=== PATIENT | female | born 1965 | race Caucasian/White ===

== ENCOUNTER → 2017-07-04 | Outpatient (CLI) | payer BC, OTHER ==
[~2017-07-04] MED LIST: ATV/1 SL; CYAN3INJ IM; LEVO137T3 PO; METR1TAB4 PO; OMEP20TA PO; TRAM-10 PO; TRAM100T PO; neomycin PO
--- NOTE | 2017-07-04 13:50 | DIAGNOSTIC IMAGING REPORT ---
CERVICAL WITHOUT CONTRAST CLINICAL HISTORY: 52 years-old Female presenting with NECK PAIN. TECHNIQUE: Multisequence, multiplanar MR imaging of the cervical spine was performed without the use of intravenous contrast. IV contrast: None. COMPARISON: None. FINDINGS: Localizer images: Unremarkable. Normal cervical lordosis. Osseous fusion across C5-C7. No residual hardware. Vertebral bodies otherwise maintain normal height, alignment, and bone marrow signal intensity. Intervertebral discs preserved. Adjacent level degenerative changes at C4-5 with disc osteophyte complex and ligamentum flavum thickening resulting in ventral and dorsal effacement of the thecal sac and mild contouring of the left posterior lateral aspect of the cord. No convincing evidence of impingement at this level. Uncovertebral hypertrophy at C4-5 also results in mild bilateral neural foraminal narrowing. The spinal cord maintains normal morphology and signal intensity. Craniocervical junction normal. No paraspinal soft tissue edema. No prevertebral soft tissue swelling. IMPRESSION: Osseous fusion across C5-7 with adjacent level degenerative change at C4-5. This results in moderate circumferential spinal canal narrowing and mild bilateral neural foraminal narrowing. No convincing evidence of spinal cord impingement. Electronically signed by: Felipe Landeros M.D. 07/04/2017 1:48 PM Dictated Date/Time: 07/04/2017 1:39 PM
== END | disposition home or self-care (01) ==
LOC: C.MRIBC 12:50
PROVIDERS: ATTEND Physician Assistant
DX: M54.2 Cervicalgia (principal)

== ENCOUNTER → 2018-02-05 | Outpatient (CLI) | payer BC, OTHER ==
[~2018-02-05] MED LIST changes: +LEVO125T5 PO; -LEVO137T3 PO; +MAGN400T6 PO; -METR1TAB4 PO; +NALO1TAB2 PO; -neomycin PO
--- NOTE | 2018-02-05 11:55 | DIAGNOSTIC IMAGING REPORT ---
THORACOLUMBAR SPINE 2 VIEWS CLINICAL HISTORY: PUMP CATHETER tube position COMPARISON STUDY: 10/11/2014 FINDINGS: Infusion catheter enters the posterior margin of the spinal canal at T12-L1. At this site the catheter is somewhat serpiginous but appears intact. There is no evidence for breakage of the line. The catheter extends to the superior fashion to the mid aspect of T10. IMPRESSION: Infusion catheter entering the spinal canal at T12-L1 and extending superiorly to the level of T10. The catheter appears intact. The above report was generated using voice recognition software. It may contain grammatical, syntax or spelling errors. Electronically signed by: Jack Nicholson M.D. 02/05/2018 11:53 AM Dictated Date/Time: 02/05/2018 11:51 AM
== END | disposition home or self-care (01) ==
LOC: C.RADBC 11:26
PROVIDERS: ATTEND Physician Assistant
DX: Z97.8 Presence of other specified devices (principal)

== ENCOUNTER → 2018-03-05 | Outpatient (CLI) | payer BC, OTHER ==
[~2018-03-05] MED LIST changes: +GADAVIST IV PRN
--- NOTE | 2018-03-06 07:20 | DIAGNOSTIC IMAGING REPORT ---
THORACIC SPINE COMBO CLINICAL HISTORY: RSD, HX IT PUMP IMPLANTATION, EVAL CATH TIP, evaluate for catheter tip granuloma. COMPARISON STUDY: MRI of the thoracic spine December 07, 2014 and thoracolumbar spine radiographs February 05, 2018. TECHNIQUE: Utilizing a 1.5 Claudine magnet, multiplanar, multi echo imaging of the thoracic spine was performed pre and postcontrast administration. Injection of 6.2 cc of Gadavist IV was uneventful. FINDINGS: Alignment of the thoracic spine is anatomic. Postoperative findings within the lower cervical spine are incidentally noted. Thoracic cord signal and caliber are normal. Intracanalicular catheter within the lower thoracic canal is noted. No catheter tip granuloma is present. Position of the catheter tip is difficult to assess by MRI. There is no intracanalicular mass or fluid collection. Thoracic disc spaces are preserved. Paravertebral soft tissues are unremarkable. There is no central canal or neural foraminal stenosis within the thoracic spine. IMPRESSION: 1. No catheter tip granuloma identified. Lower thoracic intracanalicular catheter identified. 2. Patent central canal and neural foramen within the thoracic spine. 3. Normal thoracic cord signal and caliber. Electronically signed by: Ray Madden M.D. 03/06/2018 7:19 AM Dictated Date/Time: 03/05/2018 12:30 PM
== END | disposition home or self-care (01) ==
LOC: C.MRIBC 10:54
PROVIDERS: ATTEND Physician Assistant
DX: G90.50 Complex regional pain syndrome I, unspecified (principal); Z97.8 Presence of other specified devices

== ENCOUNTER 2020-05-29 17:05 | Inpatient (IN) ==
[2020-05-29] MEDS ORDERED: ACETAMINOPHEN 325 MG TAB PO PRN (23:44)
[2020-05-29] MEDS ORDERED: ONDANSETRON INJ 2 MG/ML 2 ML VIAL IV PRN (23:44)
[2020-05-29] MEDS ORDERED: MAGNESIUM OXIDE 400 MG TAB PO PRN (23:54)
--- NOTE | 2020-05-30 01:36 | History & Physical Report ---
Date of Service May 30, 2020 Assessment & Plan (1) Reflex sympathetic dystrophy of both lower extremities: Bradycardia/hypotension Appears secondary to intrathecal pain medication currently asymptomatic Pain management consulted, may adjust pump dosing Hypotension resolved Will continue to monitor. Ordering TSH, electrolytes, EKG, Differential broad including infective, infiltrative, and autonomic causes, but in this patient almost certainly pharmacologically mediated by pain medication RSD Pain currently well controlled on pain pump and tramadol Pain management consulted. Hypothyroidism Continuing home synthroid Anxiety continuing home lorazepam prn DVT PPx: heparin F/E/N: Regular diet tolerating well Dispo: Admit for evaluation by pain management DNR/DNI (2) Presence of intrathecal pump: (3) History of parathyroidectomy: (4) Hypothyroidism: (5) Bradycardia: (6) Hypotension: Admission and Anticipated Discharge Date Admission Date: May 29, 2020 History of Present Illness Chief Complaint: Hypotension, bradycardia Primary Care Provider: Cari Villalba DO Karen Smith is a 54-year-old woman with past medical history significant of rReflex sympathetic dystrophy in her bilateral lower extremities and chronic pain. Her chronic pain involves a burning sensation in her lower legs.. She takes tramadol ER 200 mg daily 50 mg PRN and she has an intrathecal pain pump which dispenses clonidine. She presents tonight as a direct admit from [facility] where she was admitted for lightheadedness and bradycardia. She tells me she had been feeling weaker and more fatigued since her clonidine intrathecal pump dose was increased on May. Since that time she has had fatigue, lightheadedness (particularly orthostatic), and hypotension on home blood pressure monitor. She presented to primary care physician for a swollen painful left leg who noted her marked hypotension. Patient was advised to present to ED. Her heart rate has been as low as the 30's and hypotensive to the 70's/40's. Her blood pressure improved with IV fluids, though her heart rate has remained in the 40's to 50's. EKG showed sinus bradycardia, cxr normal, bilateral doppler U/S negative for any lower extremity DVT. Cardiology at outside hospital consulted for bradycardia and they believe this is likely secondary to her intrathecal clonidine. Pain management in [facility] does not manage pain pumps so she has been transferred down to us. She is currently feeling at her baseline, does not feel lightheaded, denies any fevers chills, sweats, chest pain, shortness of breath, nausea, vomiting, difficulty ambulating leg swelling or any other concerning symptoms. She lives at home with and son, she smokes about a pack and a half of cigarettes per week, she does not and has not used any illicit drugs. After some discussion she wishes to be made a DNR/DNI. Allergies Allergy/AdvReac Type Severity Reaction Status Date / Time hydromorphone Allergy Severe severe Verified 05/09/20 13:15 itch,sunburn pain interferon florin (human leuk. Allergy Severe ANAPHYLAXIS Verified 05/09/20 13:15 derive Penicillins Allergy Intermediate rash Verified 05/09/20 13:15 sumatriptan Allergy Intermediate rash, Verified 05/09/20 13:15 confused, dizzy doxycycline AdvReac Intermediate Migraine Verified 05/09/20 13:15 headache Home Medications Home Medications Medication Instructions Recorded Confirmed Type magnesium oxide 400 mg PO DAILY PRN cap 08/10/18 05/09/20 History naloxegol 25 mg tablet 25 mg PO HS tab 08/10/18 05/09/20 History omeprazole 40 mg capsule,delayed 40 mg PO DAILY 08/10/18 05/09/20 History release polyethylene glycol 3350 17 gram 17 gm PO DAILY 08/10/18 05/09/20 History oral powder packet tramadol 200 mg capsule 200 mg PO DAILY 08/10/18 05/09/20 History 24h,extended release(25-75) tramadol 50 mg tablet 50 mg PO HS tab 08/10/18 05/09/20 History lorazepam 1 mg tablet 1 mg PO DAILY PRN tab 07/26/19 05/09/20 History levothyroxine 112 mcg capsule 112 mcg PO DAILY 09/20/19 05/09/20 History vitamin H20-vyrikwu B1 1,000 1 ml IM .Q2WK 09/20/19 05/09/20 History mcg-100 mg/mL injection solution riboflavin (vitamin B2) 100 mg 200 mg PO BID tab 04/25/20 05/09/20 History tablet rimegepant 75 mg disintegrating 75 mg PO DAILY PRN tab 04/25/20 05/09/20 History tablet Past Med/Surg History Medical History Chronic low back pain (Chronic) Gastroparesis (Acute) History of skin cancer (Chronic) Hypothyroidism (Chronic) Pernicious anemia (Chronic) Presence of intrathecal pump (Chronic) X4 Reflex sympathetic dystrophy (Chronic) bilateral lower extremities Surgical History History of arthroscopy of right shoulder (Chronic) X4 History of delivery (Acute) History of colonoscopy (Acute) History of esophagogastroduodenoscopy (EGD) (Acute) History of lumbar fusion (Chronic) History of lymph node biopsy History of parathyroidectomy (Chronic) History of tubal ligation (Acute) Hx of fusion of cervical spine (Chronic) X2 S/P right knee arthroscopy (Chronic) X2 Social History Preferred Language: Estonian Communication Ability: Effective Assembler Handbags Required: No Beliefs That Will Affect Care: None Current Living Situation: Spouse Other Information That Helps Us Care for You: No Feels Safe at Home: Yes Safety Concerns: Feels Safe At This Time Smoking Status: Current every day smoker Tobacco Type: cigarettes ; Cigarettes Per Day: 5-6 ; Do You Dip or Chew Tobacco: No ; Second Hand Exposure: No ; Tobacco Cessation Education Requested by Patient: No Hx Alcohol Use: Yes Alcohol type: wine Hx Substance Use: No Review of Systems Review of Systems: All systems reviewed & are unremarkable except as noted in HPI & below Physical Exam Constitutional: WD/WN, vitals as above Eyes: PERRL, conjunctivae normal, anicteric sclerae ENMT: external ear and nose normal, oropharynx normal Neck: trachea midline, no thyromegaly Respiratory: normal respiratory effort, lungs clear to auscultation Cardiovascular: Rate/Rhythm: regular rhythm and + bradycardic; + abnormal rate Heart Sounds: normal S1 and normal S2; no click, no gallop, no murmur and no cardiac rub Gastrointestinal (Abdomen): normal bowel sounds, soft, nontender, no hepatosplenomegaly Skin: no rashes, warm and dry Neurologic: patellar DTR's 2+ bilat, sensation intact and PERRL, EOMI, accommodation nl, no face palsy, no dysarthria Results & Data Results & Data ([facility]) Vital Signs (Past 12 Hours) Vital Signs Temp Pulse Resp BP Pulse Ox 05/29/20 23:13 36.8 C 47 L 16 132/79 100 Code Status & VTE Plan VTE Prophylaxis Plan VTE Prophylaxis will be ordered: Yes Supervising Physician Co-Signing Physician Notes Attending addendum: I have physically seen this patient, have supervised the medical residents activities, and agree with the H&P unless as otherwise noted. Assessment and Plan: Bradycardia/hypotension- The patient will be admitted to telemetry for serial cardiac enzymes, serial EKG's, cardiac rhythm monitoring and a 2-D echocardiogram with Dopplers. Transferred from [facility], where she was inpatient for 3 days, to have pain pump adjusted. Patient notes symptoms occurred after intrathecal pain pump dosing adjustment. Placed on IV fluids Consult pain management RSD- On intrathecal pain pump and tramadol. Hypothyroidism- continue home Synthroid dose Remainder of orders and notations as noted Resident Activity Tracking Resident Involvement: Resident Care Provided Care Provided: Adult Hospital Medicine
[2020-05-30] MEDS: LEVOTHYROXINE SODIUM 112 MCG TABLET PO SCH (05:57)
[2020-05-30 07:04] LABS: Basophils # (auto) 0.03 K/uL (0-0.2); Basophils % (auto) 0.6 %; Eosinophils # (auto) 0.13 K/uL (0-0.5); Eosinophils % (auto) 2.6 %; Hematocrit (blood only) 35.8 % (37-47); Hemoglobin 11.5 g/dL (12.0-16.0); Immature Granulocytes # (auto) 0.01 K/uL (0.00-0.02); Immature Granulocytes % (auto) 0.2 %; Lymphocytes % (auto) 37.8 %; Mean Corpuscular Hemoglobin 29.3 pg (25-34); Mean Corpuscular Hgb Conc 32.1 g/dL (32-36); Mean Corpuscular Volume 91.3 fL (80-100); Mean Platelet Volume 9.9 fL (7.4-10.4); Monocytes # (auto) 0.36 K/uL (0.11-0.59); Monocytes % (auto) 7.2 %; Neutrophils % (auto) 51.6 %; Platelet Count 219 K/uL (130-400); RDW Coefficient of Variation 14.4 % (11.5-14.5); RDW Standard Deviation 47.8 fL (36.4-46.3); Red Blood Count 3.92 M/uL (4.2-5.4); White Blood Count 5.03 K/uL (4.8-10.8)
[2020-05-30 07:42] LABS: BUN Creatinine Ratio 10.4 (10-20); Calcium 8.7 mg/dl (8.5-10.1); Creatinine Clr Calc Pharmacy 92.5 ml/min; Est GFR (Non-African American) 99.2; Potassium 3.8 mmol/L (3.5-5.1)
[2020-05-30 07:53] LABS: Bilirubin,Total 0.4 mg/dl (0.2-1); Thyroid Stimulating Hormone 3.22 uIu/ml (0.300-4.500)
--- NOTE | 2020-05-30 08:38 | Electrocardiogram Report ---
Test Reason : Blood Pressure : / mmHG Vent. Rate : 051 BPM Atrial Rate : 051 BPM P-R Int : 140 ms QRS Dur : 084 ms QT Int : 460 ms P-R-T Axes : -11 012 038 degrees QTc Int : 423 ms Sinus bradycardia Otherwise normal ECG When compared with ECG of 25-APR-2018 06:19, Premature atrial complexes are no longer Present Vent. rate has decreased BY [address] no longer depressed in Anterior leads Nonspecific T wave abnormality no longer evident in Lateral leads QT has shortened Confirmed by Dante No ([id number]) on 05/30/2020 8:37:51 AM Referred By: Darrian Bustos Confirmed By:Dante No
[2020-05-30] MEDS: POLYETHYLENE (MIRALAX) 17 GM PACK PO SCH (08:41)
[2020-05-30] MEDS: PANTOprazole 40 MG TAB PO SCH (08:42)
[2020-05-30] MEDS: HEPARIN SOD 5,000 UNIT/0.5 ML VIAL SQ SCH ×2 (08:42→21:36)
--- NOTE | 2020-05-30 08:54 | Pain Management Consultation ---
Date of Consultation May 30, 2020 Assessment & Plan (1) Hypotension: (2) Bradycardia: (3) Reflex sympathetic dystrophy of both lower extremities: The intrathecal Clonidine dosage was decreased by 21% to see if the intrathecal Clonidine may be the cause to her bradycardia and hypotension. She has had higher doses of intrathecal Clonidine in the past without side effects. Daily dose of Clonidine is now 356.5 mcg/day. Thank you for the consultation. History of Present Illness Attending Physician: Rudy Newell History of Present Illness This is a 54 year old female that is well known to the [facility] for chronic neuropathic pain of the lower extremities. She does have an intrathecal pump and catheter delivery system implanted that is administering intrathecal Clonidine which has been adequately controlling her pain. She states that over the past 2 weeks she has been experiencing lightheadedness, nausea, weakness, and fatigue. Patient has not been able to keep with her typical activities. She did go the Emergency Department 05/27/2020 for evaluation and she was found to be hypotensive and bradycardic. She was admitted to [facility]. Evaluation has been reportedly negative. There is a question if the intrathecal Clonidine is the cause to her symptoms. She was seen on 05/09/2020 and a 7% dosage increase was made at that time. She states that the 7% dosage increase was effective for her leg pain. A week after the pump adjustment, her symptoms started. She does chronically take Tramadol ER 200mg daily and Tramadol IR 50mg daily for chronic low back pain. No chest pain, SOB, dizziness, nausea, vomiting, lightheadedness, palpitations. Case discussed with Dr. Vy Valle Pain Assessment Full Body Front + Back: 1. 2. [facility] Combined Pain Scale: 2-Minimal - Able to engage in pleasures of life with some interference Allergies Allergy/AdvReac Type Severity Reaction Status Date / Time hydromorphone Allergy Severe severe Verified 05/09/20 13:15 itch,sunburn pain interferon florin (human leuk. Allergy Severe ANAPHYLAXIS Verified 05/09/20 13:15 derive Penicillins Allergy Intermediate rash Verified 05/09/20 13:15 sumatriptan Allergy Intermediate rash, Verified 05/09/20 13:15 confused, dizzy doxycycline AdvReac Intermediate Migraine Verified 05/09/20 13:15 headache Home Medications Home Medications Medication Instructions Recorded Confirmed Type magnesium oxide 400 mg PO DAILY PRN cap 08/10/18 05/09/20 History naloxegol 25 mg tablet 25 mg PO HS tab 08/10/18 05/09/20 History omeprazole 40 mg capsule,delayed 40 mg PO DAILY 08/10/18 05/09/20 History release polyethylene glycol 3350 17 gram 17 gm PO DAILY 08/10/18 05/09/20 History oral powder packet tramadol 200 mg capsule 200 mg PO DAILY 08/10/18 05/09/20 History 24h,extended release(25-75) tramadol 50 mg tablet 50 mg PO HS tab 08/10/18 05/09/20 History lorazepam 1 mg tablet 1 mg PO DAILY PRN tab 07/26/19 05/09/20 History levothyroxine 112 mcg capsule 112 mcg PO DAILY 09/20/19 05/09/20 History vitamin Q38-fhewhuf B1 1,000 1 ml IM .Q2WK 09/20/19 05/09/20 History mcg-100 mg/mL injection solution riboflavin (vitamin B2) 100 mg 200 mg PO BID tab 04/25/20 05/09/20 History tablet rimegepant 75 mg disintegrating 75 mg PO DAILY PRN tab 04/25/20 05/09/20 History tablet Patient History Medical History Chronic low back pain (Chronic) Gastroparesis (Acute) History of skin cancer (Chronic) Hypothyroidism (Chronic) Pernicious anemia (Chronic) Presence of intrathecal pump (Chronic) X4 Reflex sympathetic dystrophy (Chronic) bilateral lower extremities Surgical History History of arthroscopy of right shoulder (Chronic) X4 History of delivery (Acute) History of colonoscopy (Acute) History of esophagogastroduodenoscopy (EGD) (Acute) History of lumbar fusion (Chronic) History of lymph node biopsy History of parathyroidectomy (Chronic) History of tubal ligation (Acute) Hx of fusion of cervical spine (Chronic) X2 S/P right knee arthroscopy (Chronic) X2 Social History Preferred Language: Occitan Communication Ability: Effective Staff Rn Required: No Beliefs That Will Affect Care: None Current Living Situation: Spouse Other Information That Helps Us Care for You: No Feels Safe at Home: Yes Safety Concerns: Feels Safe At This Time Smoking Status: Current every day smoker Tobacco Type: cigarettes ; Cigarettes Per Day: 5-6 ; Do You Dip or Chew Tobacco: No ; Second Hand Exposure: No ; Tobacco Cessation Education Requested by Patient: No Hx Alcohol Use: Yes Alcohol type: wine Hx Substance Use: No Physical Exam Physical Exam: GENERAL: This is a 54 year old white female. Well nourished; well appearing; in no acute distress. Cognition intact and speech is appropriate. HEAD: Normocephalic; atraumatic. EYES: Pupils are round, equal, and reactive to light; EOM intact. CHEST: Regular chest respiration and excursion. ABDOMEN: Active bowel sounds throughout; non-tender to palpation. Pump is located in the LLQ. LOWER EXTREMITY: Mild hyperpathia and allodynia in the feet and pretibial region in a nondermatomal pattern. Strength is 5/5 and equal. No edema of the lower extremities. NEURO: CN II-XII grossly intact with no focal deficits noted. AAO x 3. Normal gait. SKIN: There is no evidence of edema, erythema, skin breakdown of the pump or catheter site.
[2020-05-30] MEDS ORDERED: RIBOFLAVIN 200 MG PO SCH (09:00)
[2020-05-30] MEDS ORDERED: MoRPHine SULFATE 2 MG/ML CARP IV PRN (11:51)
[2020-05-30] MEDS: OXYCODONE HCL IR 5 MG TAB (IMMEDIATE RELEASE) PO PRN (11:58)
--- NOTE | 2020-05-30 20:33 | Billing Data ---
Date of Service May 30, 2020 Coding Level of Care Code 98419 Initial Inpt Care Lvl 2
--- NOTE | 2020-05-30 21:16 | Hospitalist Progress Note ---
Date of Service May 30, 2020 Assessment & Plan (1) Hypotension: likely due to clonidine in her intrathecal pain pump. pain management was consulted, and clonidine dose was decreased today. BPs have improved. bradycardia has improved. TSH wnl. no evidence of any infectious process. follow BPs and HRs overnight. could consider cortisol testing if BPs continue to be low or low-normal. appreciate pain management consult. (2) Bradycardia: suspected to be due to clonidine. HRs have improved with cutting clonidine dose in pain pump. TSH wnl. (3) Reflex sympathetic dystrophy of both lower extremities: intrathecal Clonidine dosage was decreased by 21%. Daily dose of Clonidine is now 356.5 mcg/day. appreciate pain management consult. patient has tramadol ER from home - will use. morphine and oxycodone ordered for prn usage. (4) Presence of intrathecal pump: [facility]. (5) History of parathyroidectomy: noted calcium level normal today (6) Hypothyroidism: compensated TSH wnl cont usual synthroid dose (7) Fatigue: may be 2nd clonidine TSH wnl check Fe studies am (8) DVT prophylaxis: heparin 5000 BID hopefully home tomorrow Admission and Anticipated Discharge Date Admission Date: May 29, 2020 Subjective tele overnight - mild sinus bradycardia - rates 50s. patient overall feels better. extreme fatigue is better coinciding with improved BPs. denies new complaints. Review of Systems Constitutional: no fever Respiratory: no dyspnea Cardiovascular: no chest pain Gastrointestinal: no abdominal pain Physical Exam Constitutional: well developed and well nourished; no acute distress and no altered mental status ENMT: external ear and nose normal, oropharynx normal Respiratory: normal respiratory effort, lungs clear to auscultation Cardiovascular: Rate/Rhythm: regular rhythm and + bradycardic Heart Sounds: normal S1 and normal S2; no murmur Vessels: posterior tibial pulses present and dorsalis pedis pulses present; no JVD Extremities: no edema Gastrointestinal (Abdomen): normal bowel sounds, soft, nontender, no hepatosplenomegaly intra-thecal pain pump palpable in LLQ of abdominal wall Psychiatric: A+Ox3, euthymic affect Results & Data Results & Data ([facility]) Vital Signs (Past 12 Hours) Vital Signs Temp Pulse Pulse Pulse Resp BP Pulse Ox 05/30/20 19:49 36.6 C 49 L 18 105/69 98 05/30/20 15:45 36.8 C 57 L 18 103/69 98 05/30/20 15:27 59 L 05/30/20 11:45 36.5 C 52 L 18 121/63 96 Laboratory Results Laboratory Results - last 24 hr 05/30/20 05/30/20 06:38 06:38 WBC 5.03 RBC 3.92 L Hgb 11.5 L Hct 35.8 L MCV 91.3 MCH 29.3 MCHC 32.1 RDW Std Deviation 47.8 H RDW Coeff of Jhony 14.4 Plt Count 219 MPV 9.9 Immature Gran % (Auto) 0.2 Neut % (Auto) 51.6 Lymph % (Auto) 37.8 Mcnairy % (Auto) 7.2 Eos % (Auto) 2.6 Baso % (Auto) 0.6 Neut # (Auto) 2.60 Lymph # (Auto) 1.90 Mcnairy # (Auto) 0.36 Eos # (Auto) 0.13 Baso # (Auto) 0.03 Immature Gran # (Auto) 0.01 Sodium 143 Potassium 3.8 Chloride 111 H Carbon Dioxide 28 Anion Gap 4.0 BUN 7 Creatinine 0.65 Est Cr Clr Drug Dosing 92.5 Est GFR ( Amer) 115.0 Est GFR (Non-Af Amer) 99.2 BUN/Creatinine Ratio 10.4 Glucose 90 Calcium 8.7 Total Bilirubin 0.4 AST 12 L ALT 15 Alkaline Phosphatase 67 Total Protein 6.0 L Albumin 3.0 L Globulin 3.0 Albumin/Globulin Ratio 1.0 TSH 3.220 PG Care Time/CCT Total # of Minutes Spent Total Time Spent with Patient: Total time spent is greater than 50% in coordination of care (as documented) at patient's floor/unit and/or counseling patient: Coding Level of Care Code 44198 Subseq Hosp Care Lvl 2 Diagnoses Hypotension I95.2 Hypotension type: hypotension due to drug Bradycardia R00.1 Reflex sympathetic dystrophy of both lower extremities G90.523 Presence of intrathecal pump Z96.89 History of parathyroidectomy Z98.890 Hypothyroidism E03.9 Fatigue R53.83 DVT prophylaxis Z29.9 (1) Hypotension Hypotension type: hypotension due to drug Qualified Code(s): I95.2 - Hypotension due to drugs
[2020-05-30] MEDS: TRAMADOL HCL 50 MG TABLET PO SCH (21:35)
[2020-05-30] MEDS: MOVANTIK 25 MG PO SCH (21:35)
[2020-05-30] MEDS: LORazepam 1 MG TAB PO PRN (21:40)
[2020-05-31] MEDS: OXYCODONE HCL IR 5 MG TAB (IMMEDIATE RELEASE) PO PRN ×2 (05:09→15:25)
[2020-05-31] MEDS: LEVOTHYROXINE SODIUM 112 MCG TABLET PO SCH (05:09)
[2020-05-31 06:54] LABS: Ferritin 7.9 ng/ml (8-388)
[2020-05-31] MEDS: POLYETHYLENE (MIRALAX) 17 GM PACK PO SCH (08:23)
[2020-05-31] MEDS: TRAMADOL 200 MG PO SCH (08:23)
[2020-05-31] MEDS: PANTOprazole 40 MG TAB PO SCH (08:24)
[2020-05-31] MEDS: HEPARIN SOD 5,000 UNIT/0.5 ML VIAL SQ SCH ×2 (08:24→20:14)
--- NOTE | 2020-05-31 08:46 | Pain Management Progress Note ---
Date of Service May 31, 2020 Assessment & Plan (1) Reflex sympathetic dystrophy of both lower extremities: (2) Presence of intrathecal pump: No dosage changes were made today. Intrathecal pump decrease of 21% was made yesterday. She is feeling more pain in the legs with the dosage decrease and taking Oxycodone for breakthrough pain. Clinically she is feeling better with energy and lightheadedness. Subjective Karen is feeling much better in regards to energy and lightheadedness. The lower leg pain has increased since the intrathecal clonidine dosage decrease was made yesterday. She has been utilizing Tramadol ER 200mg and Tramadol 50mg IR HS chronically. Since the dosage decrease she has required the use of Oxycodone 5mg x 2. No withdrawal symptoms. No complaints. Pain Assessment Pain Assessment Full Body Front + Back: 1. Physical Exam Physical Exam: GENERAL: This is a 54 year old white female. Well nourished; well appearing; in no acute distress. Cognition intact and speech is appropriate. HEAD: Normocephalic; atraumatic. EYES: Pupils are round, equal, and reactive to light; EOM intact. ABDOMEN: Pump is located in the LLQ. LOWER EXTREMITY: Mild hyperpathia and allodynia in the feet and pretibial region in a nondermatomal pattern. Strength is 5/5 and equal. No edema of the lower extremities. NEURO: CN II-XII grossly intact with no focal deficits noted. AAO x 3. Normal gait. SKIN: There is no evidence of edema, erythema, skin breakdown of the pump or catheter site.
--- NOTE | 2020-05-31 15:04 | Electrocardiogram Report ---
Test Reason : Blood Pressure : / mmHG Vent. Rate : 046 BPM Atrial Rate : 046 BPM P-R Int : 116 ms QRS Dur : 084 ms QT Int : 458 ms P-R-T Axes : 035 030 050 degrees QTc Int : 400 ms Sinus bradycardia Otherwise normal ECG When compared with ECG of 30-MAY-2020 07:04, No significant change was found Confirmed by Dante No ([id number]) on 05/31/2020 3:03:45 PM Referred By: Darrian Bustos Confirmed By:Dante No
[2020-05-31] MEDS: TRAMADOL HCL 50 MG TABLET PO SCH (20:13)
[2020-05-31] MEDS: LORazepam 1 MG TAB PO PRN (20:13)
[2020-05-31] MEDS: MOVANTIK 25 MG PO SCH (20:14)
--- NOTE | 2020-05-31 23:19 | Hospitalist Progress Note ---
Date of Service May 31, 2020 Assessment & Plan (1) Hypotension: likely due to clonidine in her intrathecal pain pump. pain management was consulted, and clonidine dose was decreased 05/30. bradycardia improved (was reportedly having HRs in the 30s/40s consistently at [facility]). has normal chronotropic response to walking (HRs rise into 60s with such). TSH wnl. no pauses/block on telemetry. hypotension resolved. orthostatics negative. appreciate pain management consult. (2) Bradycardia: suspected to be due to clonidine. HRs have improved with cutting clonidine dose in pain pump. TSH wnl. cont to monitor on tele. TSH, K and mag all wnl. again no AV block or pauses. (3) Reflex sympathetic dystrophy of both lower extremities: intrathecal Clonidine dosage was decreased by 21% on 05/30. Daily dose of Clonidine is now 356.5 mcg/day. appreciate pain management consult. patient has tramadol ER from home - 200mg/day. strongly consider increase to 300mg/day as the decrease in clonidine is now leading to worsening LE pains from RSD. tramadol ER is prescribed by PCP. morphine and oxycodone available for prn usage while here. (4) Presence of intrathecal pump: managed by [facility] pain management. (5) History of parathyroidectomy: noted calcium level normal (6) Hypothyroidism: compensated TSH wnl cont usual synthroid dose (7) Fatigue: severe Fe deficiency likely contributing; clonidine can cause fatigue as well ferritin level <10 does not absorb oral iron unfortunately had severe anaphylaxis to IV Venofer given the complexities of her Fe deficiency history refer to nurse office in [place] for management Fe def likely contributing to restless legs and chronic leg issues (8) Iron deficiency: as above in addition to hematology referral advised repeat visit with GI of her choosing to obtain repeat EGD/colonoscopy strongly consider celiac disease testing as well (9) DVT prophylaxis: heparin 5000 BID updated pt's by phone 05/31 anticipate d/c home on 06/01 Admission and Anticipated Discharge Date Admission Date: May 29, 2020 Subjective patient states she feels much better since the clonidine in pain pump was turned down. dizziness largely resolved. not as much fatigue. tele with HRs at rest 40-60. with activity - HR in the 60s. no sinus pauses or AV block. her main complaint is that of worsening b/l LE pain since the clonidine was decreased. oxycodone 5mg isn't strong enough. reports having been on 200mg of tramadol ER for long period of time with no dose escalation recently. eating fine. patient is aware of severe Fe deficiency, present "for years." was referred to hematology at [facility] in early . ultimately received IV venofer (2006?) and had delayed anaphylactic reaction to such. has taken PO iron without improvement in Fe def. doesn't know when her last endoscopy was or if celiac testing has ever been done. Review of Systems Constitutional: no fever, no chills, no fatigue and no anorexia Respiratory: no dyspnea Cardiovascular: no chest pain Gastrointestinal: no abdominal pain Physical Exam Constitutional: well developed and well nourished; no acute distress and no altered mental status ENMT: external ear and nose normal, oropharynx normal Respiratory: normal respiratory effort, lungs clear to auscultation Cardiovascular: Rate/Rhythm: regular rhythm and + bradycardic Heart Sounds: normal S1 and normal S2; no murmur Vessels: posterior tibial pulses present and dorsalis pedis pulses present; no JVD Extremities: no edema Gastrointestinal (Abdomen): normal bowel sounds, soft, nontender, no hepatosplenomegaly pain pump palpable in LLQ of abdominal wall Psychiatric: A+Ox3, euthymic affect Results & Data Results & Data ([facility]) Vital Signs (Past 12 Hours) Vital Signs Temp Pulse Resp BP Pulse Ox 05/31/20 20:02 36.7 C 48 L 20 117/69 96 05/31/20 15:47 36.6 C 54 L 18 117/75 96 05/31/20 11:33 36.9 C 51 L 16 102/62 96 Laboratory Results Laboratory Results - last 24 hr 05/31/20 05/31/20 06:02 06:02 Iron 38 Transferrin 247 Transferrin % Sat 11 L Ferritin 7.9 L Vitamin B12 1169 H PG Care Time/CCT Total # of Minutes Spent Total Time Spent with Patient: Total time spent is greater than 50% in coordination of care (as documented) at patient's floor/unit and/or counseling patient: Coding Level of Care Code 41004 Subseq Hosp Care Lvl 2 Diagnoses Hypotension I95.2 Hypotension type: hypotension due to drug Bradycardia R00.1 Reflex sympathetic dystrophy of both lower extremities G90.523 Presence of intrathecal pump Z96.89 History of parathyroidectomy Z98.890 Hypothyroidism E03.9 Hypothyroidism type: acquired Fatigue R53.82 Fatigue type: chronic, unspecified Iron deficiency E61.1 DVT prophylaxis Z29.9 (1) Hypotension Hypotension type: hypotension due to drug Qualified Code(s): I95.2 - Hypotension due to drugs (2) Hypothyroidism Hypothyroidism type: acquired Qualified Code(s): E03.9 - Hypothyroidism, uns pecified (3) Fatigue Fatigue type: chronic, unspecified Qualified Code(s): R53.82 - Chronic fatigue, unspecified
[2020-06-01] MEDS: OXYCODONE HCL IR 5 MG TAB (IMMEDIATE RELEASE) PO PRN ×2 (01:03→08:00)
[2020-06-01] MEDS: LEVOTHYROXINE SODIUM 112 MCG TABLET PO SCH (06:25)
[2020-06-01 06:32] LABS: BUN Creatinine Ratio 13.3 (10-20); Calcium 9.1 mg/dl (8.5-10.1); Creatinine Clr Calc Pharmacy 64.5 ml/min; Est GFR (African American) 78.6; Est GFR (Non-African American) 67.8; Potassium 4.7 mmol/L (3.5-5.1)
[2020-06-01] MEDS: HEPARIN SOD 5,000 UNIT/0.5 ML VIAL SQ SCH (08:01)
[2020-06-01] MEDS: PANTOprazole 40 MG TAB PO SCH (08:01)
[2020-06-01] MEDS: POLYETHYLENE (MIRALAX) 17 GM PACK PO SCH (08:09)
[2020-06-01] MEDS ORDERED: CYANOCOBALAMIN 1000 MCG/ML VIAL IM SCH (09:00)
[2020-06-01] MEDS: TRAMADOL 200 MG PO SCH (09:09)
--- NOTE | 2020-06-01 09:39 | Pain Management Progress Note ---
Date of Service June 01, 2020 Assessment & Plan (1) Reflex sympathetic dystrophy of both lower extremities: She has been taking Oxycodone 10mg x 6 hours for breakthrough pain since the intrathecal Clonidine decrease. Outpatient she could continue Tramadol 200mg ER daily and increase IR to 3-4 times daily or increase Tramadol ER to 300mg daily. Would plan on decreasing back to chronic regimen in a few weeks. (2) Presence of intrathecal pump: Continue current intrathecal Clonidine dosage. Pump refill scheduled on 07/04/2020. Subjective Patient doing well with intrathecal Clonidine decrease made 05/30/2020. She is ordered Oxycodone 10mg x 6 hours PRN pain which has been effective on top of her chronic Tramadol ER 200mg daily. Energy has improved and she is ready for discharge. Her iron levels are low and will get set up with [place] [facility] for further treatment. Pain Assessment Pain Assessment Full Body Front + Back: 1. [facility] Combined Pain Scale: 2-Minimal - Able to engage in pleasures of life with some interference Physical Exam Physical Exam: GENERAL: This is a 54 year old female. Does not appear in acute distress. HEAD/FACE: Normocephalic and atraumatic. EYES: No drainage or conjunctival injection. CHEST/AXILLA: Chest movement symmetrical. No deformities noted. SKIN: [place], warm and dry. No rash noted. MS/EXTREMITY: No swelling, no deformities. Moving extremities appropriately. Allodynia along the pretibial region. NEURO: Alert and appears oriented. Speech is fluent. Cranial Nerves are grossly intact. PSYCH: Alert, pleasant, affect is calm
--- NOTE | 2020-06-01 12:22 | Discharge Summary ---
Date of Service June 01, 2020 Admission HPI Per Admitting Provider Karen Smith is a 54-year-old woman with past medical history significant of rReflex sympathetic dystrophy in her bilateral lower extremities and chronic pain. Her chronic pain involves a burning sensation in her lower legs.. She takes tramadol ER 200 mg daily 50 mg PRN and she has an intrathecal pain pump which dispenses clonidine. She presents tonight as a direct admit from [facility] where she was admitted for lightheadedness and bradycardia. She tells me she had been feeling weaker and more fatigued since her clonidine intrathecal pump dose was increased on May. Since that time she has had fatigue, lightheadedness (particularly orthostatic), and hypotension on home blood pressure monitor. She presented to primary care physician for a swollen painful left leg who noted her marked hypotension. Patient was advised to present to ED. Her heart rate has been as low as the 30's and hypotensive to the 70's/40's. Her blood pressure improved with IV fluids, though her heart rate has remained in the 40's to 50's. EKG showed sinus bradycardia, cxr normal, bilateral doppler U/S negative for any lower extremity DVT. Cardiology at outside hospital consulted for bradycardia and they believe this is likely secondary to her intrathecal clonidine. Pain management in [facility] does not manage pain pumps so she has been transferred down to us. She is currently feeling at her baseline, does not feel lightheaded, denies any fevers chills, sweats, chest pain, shortness of breath, nausea, vomiting, difficulty ambulating leg swelling or any other concerning symptoms. She lives at home with and son, she smokes about a pack and a half of cigarettes per week, she does not and has not used any illicit drugs. After some discussion she wishes to be made a DNR/DNI. Principal Diagnosis Pt states she is still very tired. She feels her pain is being reasonably managed. Pt denies fever, SOB, chest pain, abd pain, n/v/c/d, LE swelling. Toleration PO without issue. Ongoing RLS. Discharge Exam Constitutional WD/WN, vitals as above Eyes normal visual almonte by confrontation and + anicteric sclerae Neck normal visual inspection and trachea midline Respiratory normal respiratory effort, lungs clear to auscultation Cardiovascular Rate/Rhythm: regular rate and regular rhythm Gastrointestinal (Abdomen) Inspection/Auscultation: abdomen not distended Percussion/Palpation: abdomen soft; abdomen nontender Musculoskeletal Head/Neck/Chest: normocephalic and head atraumatic Skin no rashes, warm and dry Neurologic awake; not confused Speech / Cognition: normal speech Psychiatric A+Ox3, euthymic affect Discharge Data Allergies Allergy/AdvReac Type Severity Reaction Status Date / Time hydromorphone Allergy Severe severe Verified 05/09/20 13:15 itch,sunburn pain interferon florin (human leuk. Allergy Severe ANAPHYLAXIS Verified 05/09/20 13:15 derive iron Allergy Severe Unknown Verified 05/31/20 16:14 Penicillins Allergy Intermediate rash Verified 05/09/20 13:15 sumatriptan Allergy Intermediate rash, Verified 05/09/20 13:15 confused, dizzy doxycycline AdvReac Intermediate Migraine Verified 05/09/20 13:15 headache Consultations 05/29/20 23:44 Consult Pain Management Routine Hospital Course (1) Hypotension: likely due to clonidine in her intrathecal pain pump. pain management was consulted, and clonidine dose was decreased 05/30. bradycardia improved (was reportedly having HRs in the 30s/40s consistently at [facility]). has normal chronotropic response to walking (HRs rise into 60s with such). TSH wnl. no pauses/block on telemetry. hypotension resolved. orthostatics negative. (2) Bradycardia: suspected to be due to clonidine. HRs have improved with cutting clonidine dose in pain pump. TSH wnl. cont to monitor on tele. TSH, K and mag all wnl. again no AV block or pauses. (3) Reflex sympathetic dystrophy of both lower extremities: intrathecal Clonidine dosage was decreased by 21% on 05/30. Daily dose of Clonidine is now 356.5 mcg/day. patient has tramadol ER from home - 200mg/day. strongly consider increase to 300mg/day as the decrease in clonidine is now leading to worsening LE pains from RSD. tramadol ER is prescribed by PCP and pain management is requesting they increase this medication if they feel it is needed I did advise pt t/c acupuncture. She stated that she had a "terrible experience" with this several years ago in [place]. She states it was very painful and "did not work" after one session. After asking several questions, it sounds as if the product marketing manager that pt saw did not use a guide tube for needle insertion. Not using a guide tube makes the needle insertion much more painful. I advised pt to ask about guide tube use if she were to pursue. Also advised her that acu puncture generally takes multiple sessions for pts to see results, especially in the setting of chronic, long standing issues. (4) Presence of intrathecal pump: managed by [facility] pain management. (5) History of parathyroidectomy: noted calcium level normal (6) Hypothyroidism: compensated TSH wnl cont usual synthroid dose (7) Fatigue: severe Fe deficiency likely contributing; clonidine can cause fatigue as well ferritin level <10 does not absorb oral iron unfortunately had severe anaphylaxis to IV Venofer given the complexities of her Fe deficiency history refer to [facility] [employer] in [place] for management Appt made for pt prior to d/c Fe def likely contributing to restless legs and chronic leg issues (8) Iron deficiency: as above in addition to hematology referral advised repeat visit with GI of her choosing to obtain repeat EGD/colonoscopy strongly consider celiac disease testing as well (9) DVT prophylaxis: heparin 5000 BID Total Time Total Time Spent Total Time Spent (In Minutes): >30 Total Time Includes: Examination of the Patient, Discharge Planning, Medication Reconciliation and Other Discharge Plan Discharge Items Patient Disposition: Home - Self-Care Reason For Visit: TOXIC ENCEPHALOPATHY Discharge Diagnosis: toxic encephalopathy related to pain meds Activity: Resume your previous activity Non-emergency contact: Primary Care Provider Call non-emergency contact if: you have any medication questions, your symptoms worsen and your pain is not controlled Follow-up/Referrals: Cari Villalba DO [Primary Care Provider] - 06/06/20 5:30 pm Diet: Regular Addtl Attending Provider Instructions: An appt. has been made for you with Dr. Valdez, Software Developer Manager at [facility] in [place]. Their office number is [phone]. They are located at [address] [place] [address]. They ask that you arrive at 1215 for appointment at 1300. Addtl Coal Hauler Operator Provider Instructions: You should call your pain management doctor if your pain is not controlled You should consider acupuncture for your pain related issues. It sounds like the prior product marketing manager you went to used a technique that did not use a guide tube, which most peope think helps to make acupuncture less painful. If you decide to pursue acupuncture in the future, you should ask if the product marketing manager uses a guide tube when you make your appointment. Pending Studies at Discharge: No Stand-Alone Forms: My [facility], Smoking Cessation Medications and DC Order Prescriptions: New oxycodone 10 mg tablet 10 mg PO Q6H PRN (Reason: pain) Qty: 30 RF: 0 Continued levothyroxine 112 mcg capsule 112 mcg PO DAILY RF: 0 lorazepam 1 mg tablet 1 mg PO DAILY PRNRF: 0 polyethylene glycol 3350 [Miralax] 17 gram powder in packet 17 gm PO DAILY RF: 0 omeprazole 40 mg capsule,delayed release(DR/EC) 40 mg PO DAILY RF: 0 tramadol 50 mg tablet 50 mg PO HS RF: 0 tramadol 200 mg capsule,ER biphase 24 hr 25-75 200 mg PO DAILY RF: 0 magnesium oxide 400 mg capsule 400 mg PO DAILY PRN (Reason: Hypomagnesemia) RF: 0 naloxegol [Movantik] 25 mg tablet 25 mg PO HS RF: 0 vitamin K06-phyenhd B1 1,000-100 mg/mL solution 1 ml IM .Q2WK RF: 0 riboflavin (vitamin B2) 100 mg tablet 200 mg PO BID RF: 0 Nurtec ODT 75 mg tablet,disintegrating 75 mg PO DAILY PRN (Reason: migraine headache) RF: 0 Discharge Orders: Discharge Order (Routine); Ordered 06/01/20 Ordered By: Jaquelin Brody/Other Patient Handouts: Hypotension Dc Admission Data Admit Date/Time: 05/29/20 23:07 Attending Provider: Jaquelin Bryson Admit Provider: Lai Chavarria Primary Care Provider: Cari Villalba Other Providers: Marti Dewey Other Interventions: Discharge Summary Assessment (RN) Last Done: 06/01/20 12:52 DC Date/Time DO NOT enter until pt leaves facility: 06/01/20 13:16 Coding Level of Care Code D/C Day Management >30 mins Diagnoses Hypotension I95.2 Hypotension type: hypotension due to drug Bradycardia R00.1 Reflex sympathetic dystrophy of both lower extremities G90.523 Presence of intrathecal pump Z96.89 History of parathyroidectomy Z98.890 Hypothyroidism E03.9 Hypothyroidism type: acquired Fatigue R53.82 Fatigue type: chronic, unspecified Iron deficiency E61.1 DVT prophylaxis Z29.9
--- NOTE | 2020-06-08 13:32 | Coding Query ---
To promote full compliance with coding requirements relating to patient care, provider participation is requested in all cases of sports director uncertainty. Please assist us with the question(s) below: Coding Question(s): The diagnosis below was documented only on the Discharge Summary at the bottom under Discharge Plan, with no previous or further documentation. Please indicate if it is still a possible diagnosis or ruled out. Physician's Response(s): TOXIC ENCEPHALOPATHY (documented only on Discharge Summary at the bottom under Discharge Plan) ( x ) Diagnosed and POA ( ) Diagnosed and not POA ( ) Ruled out ( ) Other (please specify) MTDD
== END 2020-06-01 13:16 | disposition home or self-care (01) | DRG 92 ==
LOC: 2S 23:07 → SUATTDRO 23:07